=== PATIENT | female | born 1950 | race Hispanic/Latino ===

== ENCOUNTER → 2022-08-23 | Outpatient (CLI) | payer OTHER, MEDICARE ==
[~2022-08-23] MED LIST: AMLO-257 PO; ANAS1TAB49 PO; EMPA25TA PO; FERR-72 PO; GABA300C PO; LISI40TA9 PO; MELO-106 PO; METF-446 PO; OMEP40CA21 PO; PRAV40TA3 PO; SAXA5TAB PO
[2022-08-23 12:20] LABS: BASOPHILS % (AUTO) 0.1 % (0.0-5.0); EOSINOPHILS % (AUTO) 2.6 % (0.0-8.0); HEMATOCRIT 34.4 % (36-48); LYMPHOCYTES % (AUTO) 29.1 % (21.0-51.0); MEAN CORPUSCULAR HEMOGLOBIN 24.9 pg (27.0-33.0); MEAN CORPUSCULAR HGB CONC 30.2 g/dL (32.0-36.0); MEAN CORPUSCULAR VOLUME 82.5 fL (79-99); MONOCYTES % (AUTO) 7.6 % (3.0-13.0); NEUTROPHILS % (AUTO) 60.3 % (40.0-77.0); PLATELET COUNT (AUTO) 275 K/uL (130-400); RED BLOOD CELL COUNT(AUTO) 4.17 MIL/uL (4.00-5.50); RED CELL DISTRIBUTION WIDTH 23.4 % (11.0-15.5); WHITE BLOOD COUNT (AUTO) 6.9 K/uL (4.8-10.8)
[2022-08-23 12:36] LABS: INR 0.93 (0.85-1.15); PROTHROMBIN TIME 10.3 SEC (9.6-11.6)
[2022-08-23 12:42] LABS: POTASSIUM 4.6 mmol/L (3.5-5.1); TOTAL PROTEIN, SERUM 8.5 g/dL (6.0-8.3)
== END | disposition home or self-care (01) ==
LOC: LAB 11:25
PROVIDERS: ATTEND Surgery
DX: Z01.812 Encounter for preprocedural laboratory examination (principal); C18.2 Malignant neoplasm of ascending colon; K29.50 Unspecified chronic gastritis without bleeding
CPT/HCPCS: 36415; 80053; 82378; 85025; 85610

== ENCOUNTER → 2022-08-26 | Outpatient (CLI) | payer OTHER, MEDICARE ==
[~2022-08-26] MED LIST changes: +IOHEXOL 350 MG/ML 100ML INFUS..BTL IV ONE
== END | disposition home or self-care (01) ==
LOC: RAH 10:12
PROVIDERS: ATTEND Surgery
DX: C18.2 Malignant neoplasm of ascending colon (principal); J84.10 Pulmonary fibrosis, unspecified; R91.8 Other nonspecific abnormal finding of lung field; I70.0 Atherosclerosis of aorta; K57.30 Diverticulosis of large intestine without perforation or abscess without bleeding; K59.00 Constipation, unspecified; Z90.12 Acquired absence of left breast and nipple
CPT/HCPCS: 71260; 74178; Q9967

== ENCOUNTER 2022-08-27 15:00 | Inpatient (IN) | payer OTHER, MEDICARE ==
[2022-08-26 13:32] LABS: BASOPHILS % (AUTO) 0.2 % (0.0-5.0); EOSINOPHILS % (AUTO) 2.1 % (0.0-8.0); HEMATOCRIT 35.2 % (36-48); MEAN CORPUSCULAR HEMOGLOBIN 24.9 pg (27.0-33.0); MEAN CORPUSCULAR HGB CONC 29.8 g/dL (32.0-36.0); MEAN CORPUSCULAR VOLUME 83.4 fL (79-99); MONOCYTES % (AUTO) 9.9 % (3.0-13.0); NEUTROPHILS % (AUTO) 65.5 % (40.0-77.0); PLATELET COUNT (AUTO) 279 K/uL (130-400); RED BLOOD CELL COUNT(AUTO) 4.22 MIL/uL (4.00-5.50); RED CELL DISTRIBUTION WIDTH 23.4 % (11.0-15.5); WHITE BLOOD COUNT (AUTO) 6.3 K/uL (4.8-10.8)
[2022-08-26 13:40] VITALS: BP 146/71; PULSE 88; RESP 16
[2022-08-26 13:44] LABS: INR 0.93 (0.85-1.15); PROTHROMBIN TIME 10.7 SEC (9.6-11.6)
[2022-08-26 13:45] LABS: PARTIAL THROMBOPLASTIN TIME 26.6 SEC (26.3-35.5)
[2022-08-26 13:48] LABS: ALBUMIN 4.2 g/dL (3.5-5.0); POTASSIUM 3.8 mmol/L (3.5-5.1)
[~2022-08-27] VITALS: Ht 157.5 cm; Wt 61.1 kg
[~2022-08-27 15:00] MED LIST changes: -IOHEXOL 350 MG/ML 100ML INFUS..BTL IV ONE
[2022-08-31] VITALS (31 sets, daily range): BP systolic 94–133; BP diastolic 44–70; PULSE 62–98; RESP 18–22; O2SAT 96–98
[2022-08-31] MEDS ORDERED: MEROPENEM 1 GM VIAL ONE (07:35)
[2022-08-31] MEDS ORDERED: 0.9%NACL 1000ML 1,000 ML IV ONE (07:35)
[2022-08-31 08:12] LABS: CREATININE 0.7 mg/dL (0.5-1.5); POTASSIUM 3.5 mmol/L (3.5-5.1)
[2022-08-31] MEDS ORDERED: BUPIVACAINE/PF 0.5% 30ML VIAL ONE (11:14)
[2022-08-31] MEDS ORDERED: ONDANSETRON 4MG INJ ONE (11:20)
[2022-08-31] MEDS ORDERED: LIDOCAINE PF 100MG/5ML (2%) SYRINGE 5ML ONE (11:20)
[2022-08-31] MEDS ORDERED: DEXAMETHASONE SOD PHOSPHATE 10MG/ML 1ML VIAL ONE (11:20)
[2022-08-31] MEDS ORDERED: PROPOFOL 10 MG/ML 20ML VIAL IV ONE (11:20)
[2022-08-31] MEDS ORDERED: FENTANYL CITRATE PF 50 MCG/1 ML 5ML AMP IV ONE (11:21)
[2022-08-31] MEDS ORDERED: ROCURONIUM 10MG/1ML SYR 10 MG/ML ML ONE (11:21)
[2022-08-31] MEDS ORDERED: MIDAZOLAM HCL 1 MG/ML 2ML VIAL ONE (11:21)
[2022-08-31] MEDS ORDERED: INDOCYANINE GREEN 25 MG VIAL IJ ONE (11:23)
[2022-08-31] MEDS ORDERED: SUCCINYLCHOLINE 200MG/10ML SYR ONE (11:24)
[2022-08-31] MEDS ORDERED: KETAMINE 50MG/ML SYRINGE 50 MG/ML DISP.SYRIN ONE (11:44)
[2022-08-31] MEDS ORDERED: MEROPENEM 1 GM VIAL IVPB ONE (11:55)
[2022-08-31] MEDS ORDERED: LIDOCAINE 1%-EPI 1:100,000 20 ML VIAL IJ ONE (12:10)
[2022-08-31] MEDS ORDERED: BUPIVACAINE/PF 0.5% 30ML VIAL INJ ONE (12:10)
[2022-08-31] MEDS ORDERED: NEOSTIGMINE 5MG/5ML SYR IV ONE (13:55)
[2022-08-31] MEDS ORDERED: GLYCOPYRROLATE 1 MG/5 ML SYRINGE ONE (13:55)
[2022-08-31] MEDS ORDERED: EPHEDRINE SULFATE 50 MG/ML AMPULE ONE (14:23)
[2022-08-31] MEDS ORDERED: BACITRACIN 28.4 GM OINT TP ONE (14:29)
[2022-08-31] MEDS ORDERED: HYDROMORPHONE 0.5 MG SYG (0.5MG/0.5ML) IVP PRN (15:00)
[2022-08-31] MEDS ORDERED: ONDANSETRON 4MG INJ IVP PRN (15:00)
[2022-08-31] MEDS ORDERED: CALDOLOR 800MG+NS 250ML 250 ML IV ONE (15:38)
[2022-08-31] MEDS ORDERED: MORPHINE 2 MG SYG ONE (15:51)
[2022-08-31] MEDS: LACTATED RINGERS 1000ML 1,000 ML IV SCH (16:52)
[2022-08-31] MEDS: INSULIN HUMULIN R 100 UNIT/ML 3ML SQ PRN (21:28)
[2022-08-31] MEDS: OXYCODONE HCL 5 MG TAB PO PRN (21:33)
[2022-08-31] MEDS: ACETAMINOPHEN 500 MG TABLET PO SCH (23:30)
[2022-09-01] VITALS (8 sets, daily range): BP systolic 123–142; BP diastolic 58–70; PULSE 80–91; RESP 16–20; O2SAT 96–97
[2022-09-01] MEDS ORDERED: HYDRALAZINE 20MG/ML VIAL IV PRN
[2022-09-01 05:07] LABS: BASOPHILS % (AUTO) 0.1 % (0.0-5.0); HEMATOCRIT 31.4 % (36-48); LYMPHOCYTES % (AUTO) 8.3 % (21.0-51.0); MEAN CORPUSCULAR HEMOGLOBIN 25.5 pg (27.0-33.0); MEAN CORPUSCULAR HGB CONC 30.3 g/dL (32.0-36.0); MEAN CORPUSCULAR VOLUME 84.2 fL (79-99); MONOCYTES % (AUTO) 8.6 % (3.0-13.0); NEUTROPHILS % (AUTO) 82.4 % (40.0-77.0); PLATELET COUNT (AUTO) 252 K/uL (130-400); RED BLOOD CELL COUNT(AUTO) 3.73 MIL/uL (4.00-5.50); RED CELL DISTRIBUTION WIDTH 22.3 % (11.0-15.5); WHITE BLOOD COUNT (AUTO) 12.4 K/uL (4.8-10.8)
[2022-09-01 05:18] LABS: CREATININE 0.6 mg/dL (0.5-1.5)
[2022-09-01] MEDS: HEPARIN 5,000 UNIT VIAL SQ SCH ×4 (07:04→21:46)
[2022-09-01] MEDS: ACETAMINOPHEN 500 MG TABLET PO SCH ×3 (07:09→23:15)
[2022-09-01] MEDS: FAMOTIDINE 20MG VIAL IV SCH (08:36)
[2022-09-01] MEDS: OXYCODONE HCL 5 MG TAB PO PRN ×3 (08:36→23:16)
[2022-09-01] MEDS: LACTATED RINGERS 1000ML 1,000 ML IV SCH (11:00)
[2022-09-02 00:01] VITALS: BP 130/74; PULSE 98; RESP 18
[2022-09-02 04:00] VITALS: BP 145/70; PULSE 92; RESP 18
[2022-09-02 05:30] LABS: BASOPHILS % (AUTO) 0.1 % (0.0-5.0); EOSINOPHILS % (AUTO) 0.6 % (0.0-8.0); HEMATOCRIT 30.2 % (36-48); LYMPHOCYTES % (AUTO) 20.8 % (21.0-51.0); MEAN CORPUSCULAR HEMOGLOBIN 25.5 pg (27.0-33.0); MEAN CORPUSCULAR HGB CONC 30.8 g/dL (32.0-36.0); MONOCYTES % (AUTO) 7.1 % (3.0-13.0); PLATELET COUNT (AUTO) 238 K/uL (130-400); RED BLOOD CELL COUNT(AUTO) 3.64 MIL/uL (4.00-5.50); RED CELL DISTRIBUTION WIDTH 22.5 % (11.0-15.5)
[2022-09-02 05:35] LABS: CREATININE 0.7 mg/dL (0.5-1.5); POTASSIUM 3.6 mmol/L (3.5-5.1)
[2022-09-02] MEDS: INSULIN HUMULIN R 100 UNIT/ML 3ML SQ PRN (06:29)
[2022-09-02] MEDS: LACTATED RINGERS 1000ML 1,000 ML IV SCH (06:31)
[2022-09-02] MEDS: ACETAMINOPHEN 500 MG TABLET PO SCH ×2 (06:39→15:15)
[2022-09-02 08:00] VITALS: BP 137/67; PULSE 82; RESP 18; O2SAT 97
[2022-09-02] MEDS: FAMOTIDINE 20MG VIAL IV SCH (09:17)
[2022-09-02] MEDS: OXYCODONE HCL 5 MG TAB PO PRN ×2 (09:17→15:15)
[2022-09-02] MEDS: HEPARIN 5,000 UNIT VIAL SQ SCH (09:26)
[2022-09-02 12:00] VITALS: BP 120/67; PULSE 84; RESP 18
[2022-09-02] MEDS ORDERED: GABAPENTIN 300 MG CAPSULE PO SCH (14:00)
[2022-09-02 16:00] VITALS: BP 136/69; PULSE 90; RESP 19
[2022-09-02] MEDS ORDERED: ATORVASTATIN 10 MG TABLET PO SCH (21:00)
[2022-09-03] MEDS ORDERED: LISINOPRIL 40 MG TABLET PO SCH (09:00)
[2022-09-03] MEDS ORDERED: NON-FORMULARY MEDICATION 1 EACH (Pravastatin Sodium 40 MG) PO SCH (09:00)
[2022-09-03] MEDS ORDERED: AMLODIPINE 5 MG TAB PO SCH (09:00)
== END 2022-09-02 17:43 | disposition home or self-care (01) | DRG 330 ==
LOC: DAHIP 08-31 07:14 → 3AH 08-31 16:20
PROVIDERS: ADMIT Surgery; ATTEND Surgery
PROC: 8E0W4CZ Robotic Assisted Procedure of Trunk Region, Percutaneous Endoscopic Approach (ICD-10-PCS; 2022-08-31)
PROC: 0DBF4ZZ Excision of Right Large Intestine, Percutaneous Endoscopic Approach (ICD-10-PCS; principal; 2022-08-31 11:45)
DX: C18.2 Malignant neoplasm of ascending colon (principal); C18.7 Malignant neoplasm of sigmoid colon; E11.40 Type 2 diabetes mellitus with diabetic neuropathy, unspecified; Z20.822 Contact with and (suspected) exposure to COVID-19; E78.5 Hyperlipidemia, unspecified; I10 Essential (primary) hypertension; Z90.12 Acquired absence of left breast and nipple; Z85.3 Personal history of malignant neoplasm of breast
CPT/HCPCS: 36415; 80048; 80053; 82948; 85025; 85610; 85730; 86850; 86900; 86901; 87426; 93005; 97039; A4344; G0378; J0330; J1100; J1170; J1644; J1741; J1815; J2001; J2185; J2250; J2270; J2405; J2704; J2710; J3010; J3490; J7030; J7120; A4215; A4221; A4222; A4223; A4600; A4649; A4663; A4930; A6260; C1769; G0168